=== PATIENT | female | born 1945 | race Caucasian/White ===

== ENCOUNTER 2017-05-07 10:46 | Emergency (ER) | payer MEDICARE, BC ==
[2017-05-07 10:55] VITALS: BP 140/100
--- NOTE | 2017-05-07 11:04 | EDM.PDOC ---
ED HPI GENERAL MEDICAL PROBLEM - General Chief Complaint: General Stated Complaint: CHEST PAIN Time Seen by Provider: 05/07/17 11:05 Source of Information: Reports: Patient History Limitations: Reports: No Limitations - History of Present Illness INITIAL COMMENTS - FREE TEXT/NARRATIVE: 71 yo female with a recent hx of what sounds like exertional angina is scheduled for a cardiac cath tomorrow in [place]. Today she noticed some mild anterior chest discomfort which is now gone and some twinges in her in left arm. Both are gone now that she is here. She had been advised that if her heart sx's returned before her cath that she should be seen. Onset: Today Onset Date: 05/07/17 Duration: Minutes: Location: Reports: Chest, Upper Extremity, Left Quality: Reports: Dull Severity: Mild Improves with: Reports: Other (time, now gone) Worsens with: Reports: Other (unknown, was not exerting herself today when these sx's occurred. 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 (see below) (Took all her usual medications) - Related Data Allergies Allergy/AdvReac Type Severity Reaction Status Date / Time No Known Allergies Allergy Verified 05/07/17 10:51 Home Meds: Home Meds Aspirin 325 mg PO DAILY 05/07/17 [History] Cholecalciferol (Vitamin D3) [Vitamin D3] 2,000 unit PO BEDTIME 05/07/17 [ History] Gabapentin [Neurontin] 400 mg PO TID 05/07/17 [History] Losartan [Cozaar] 50 mg PO DAILY 05/07/17 [History] Metoprolol Succinate [Toprol XL] 50 mg PO DAILY 05/07/17 [History] Simvastatin [Zocor] 40 mg PO DAILY 05/07/17 [History] glipiZIDE [Glipizide Xl] 10 mg PO BID 05/07/17 [History] metFORMIN [Glucophage] 1,000 mg PO BID 05/07/17 [History] Past Medical History Cardiovascular History: Reports: Hypertension 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 Denies: Dyspnea on Exertion, Edema, Lightheadedness, Orthopnea, Palpitations GI/Abdominal: Reports: No Symptoms : Reports: No Symptoms Musculoskeletal: Reports: No Symptoms Skin: Reports: No Symptoms Neurological: Reports: No Symptoms ED EXAM, GENERAL - Physical Exam Exam: See Below Exam Limited By: No Limitations General Appearance: Alert, WD/WN, No Apparent Distress Eye Exam: Bilateral Eye: Normal Inspection, PERRL Ears: Normal External Exam, Normal Canal, Hearing Grossly Normal Ear Exam: Bilateral Ear: Auricle Normal, Canal Normal Nose: Normal Inspection, Normal Mucosa, No Blood Throat/Mouth: Normal Inspection, Normal Lips, Normal Teeth, Normal Oropharynx, Normal Voice, No Airway Compromise Head: Atraumatic, Normocephalic Neck: Normal Inspection Respiratory/Chest: No Respiratory Distress, Lungs Clear, Normal Breath Sounds, No Accessory Muscle Use Cardiovascular: Regular Rate, Rhythm, No Edema GI/Abdominal: Soft, Non-Tender Back Exam: Normal Inspection Extremities: Normal Inspection, Normal Range of Motion, Non-Tender, No Pedal Edema Neurological: Alert, Oriented, CN II-XII Intact, Normal Cognition, Normal Gait, No Motor/Sensory Deficits Psychiatric: Normal Affect, Normal Mood Skin Exam: Warm, Dry, Intact, Normal Color, No Rash Lymphatic: No Adenopathy EKG INTERPRETATION EKG Date: 05/07/17 Time: 10:55 Rhythm: NSR Rate (Beats/Min): 79 [place]: Normal P-Wave: Present QRS: Normal ST-T: Normal QT: Normal Comparison: NA - No Prior EKG Course - Vital Signs Last Recorded V/S: Last Vital Signs Temp 36.8 C 05/07/17 10:46 Pulse 79 05/07/17 10:46 Resp 17 05/07/17 10:46 BP 140/100 H 05/07/17 10:46 Pulse Ox 100 05/07/17 10:46 - Orders/Labs/Meds Orders: Active Orders 24 hr Category Date Time Status EKG 12 Lead [EK] Routine Ther 05/07/17 11:00 Ordered Labs: Laboratory Tests 05/07/17 Range/Units 11:30 Troponin I < 0.01 L (0.02-0.06) NG/ML Departure - Departure Time of Disposition: 12:11 Disposition: Home, Self-Care 01 Condition: Good Clinical Impression: Nonspecific chest pain - Discharge Information Referrals: Violeta Sandoval NP [Primary Care Provider] - Forms: ED Department Discharge - My Orders Last 24 Hours: My Active Orders 05/07/17 11:00 EKG 12 Lead [EK] Routine - Assessment/Plan Last 24 Hours: My Active Orders 05/07/17 11:00 EKG 12 Lead [EK] Routine
== END 2017-05-07 12:25 | disposition home or self-care (01) ==
LOC: FB.ED 10:46
DX: R07.89 Other chest pain (principal); E11.9 Type 2 diabetes mellitus without complications; Z79.84 Long term (current) use of oral hypoglycemic drugs; Z79.82 Long term (current) use of aspirin
CPT/HCPCS: 36415; 84484; 93005; 99283

== ENCOUNTER 2019-05-19 18:24 | Emergency (ER) | payer MEDICARE, BC ==
--- NOTE | 2019-05-19 19:06 | EDM.PDOC ---
ED HPI GENERAL MEDICAL PROBLEM - General Stated Complaint: DISCOMFORT IN CHEST Time Seen by Provider: 05/19/19 18:24 Source of Information: Reports: Patient, Family History Limitations: Reports: No Limitations - History of Present Illness INITIAL COMMENTS - FREE TEXT/NARRATIVE: 73 y.o.w.f S/P cardiac bypass surgery > 2 years ago, H/O HTN and NIDDM, came to the because of mid upper abd. pain going into her mid chest. As soon she takes a tablet of Pepcid, her pain improved. She was seen bey her PMD and melter supervisor for same. No N/V/ no diaphoresis , no SOB or any other acute med issues. 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 below) (pepcid) - Related Data Allergies Allergy/AdvReac Type Severity Reaction Status Date / Time No Known Allergies Allergy Verified 05/19/19 18:58 Home Meds: Home Meds Cholecalciferol (Vitamin D3) [Vitamin D3] 2,000 unit PO BEDTIME 05/07/17 [ History] Gabapentin [Neurontin] 400 mg PO TID 05/07/17 [History] Losartan [Cozaar] 100 mg PO DAILY 05/07/17 [History] Metoprolol Succinate [Toprol XL] 25 mg PO DAILY 05/07/17 [History] glipiZIDE [Glipizide Xl] 10 mg PO BID 05/07/17 [History] metFORMIN [Glucophage] 1,000 mg PO BID 05/07/17 [History] Aspirin [Halfprin] 81 mg PO DAILY 05/19/19 [History] Betamethasone/Propylene Glyc [Betamethasone DP Aug 0.05%] 30 ml TP BID 05/19/19 [History] Biotin 5,000 mcg PO DAILY 05/19/19 [History] Docusate Sodium 250 mg PO DAILY 05/19/19 [History] Fluticasone Propionate [Flonase] 16 gm NS DAILY 05/19/19 [History] atorvaSTATin [Lipitor] 20 mg PO DAILY 05/19/19 [History] hydroCHLOROthiazide [Hydrochlorothiazide] 12.5 mg PO DAILY 05/19/19 [History] Past Medical History Cardiovascular History: Reports: Hypertension, Other (See Below) Other Cardiovascular History: triple bypass 2 years ago. 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 Musculoskeletal History: back surgery Psychiatric History: Reports: Anxiety Endocrine/Metabolic History: Reports: Diabetes, Type II Social & Family History - Family History Family Medical History: Unobtainable ED ROS GENERAL - Review of Systems Review Of Systems: See Below Constitutional: Reports: No Symptoms HEENT: Reports: No Symptoms Respiratory: Reports: No Symptoms Cardiovascular: Reports: No Symptoms Endocrine: Reports: No Symptoms GI/Abdominal: Reports: Abdominal Pain (epigastric) : Reports: No Symptoms Musculoskeletal: Reports: No Symptoms Skin: Reports: No Symptoms Neurological: Reports: No Symptoms Psychiatric: Reports: No Symptoms Hematologic/Lymphatic: Reports: No Symptoms Immunologic: Reports: No Symptoms ED EXAM, GI/ABD - Physical Exam Exam: See Below Exam Limited By: No Limitations General Appearance: Alert, WD/WN, Mild Distress Eyes: Bilateral: Normal Appearance Ears: Normal External Exam, Normal Canal Nose: Normal Inspection, Normal Mucosa, No Blood Throat/Mouth: Normal Lips, Normal Voice, No Airway Compromise Head: Atraumatic, Normocephalic Neck: Normal Inspection, Supple, Non-Tender, Full Range of Motion Respiratory/Chest: No Respiratory Distress, Lungs Clear, Normal Breath Sounds, No Accessory Muscle Use, Chest Non-Tender Cardiovascular: Normal Peripheral Pulses, Regular Rate, Rhythm, No Edema, No Gallop, No Murmur, No Rub GI/Abdominal Exam: Tender (epigastric tenderness) (Female) Exam: Deferred Rectal (Female) Exam: Deferred Back Exam: Normal Inspection, Full Range of Motion Extremities: Normal Inspection, Normal Range of Motion, Non-Tender Neurological: Alert, Oriented, CN II-XII Intact, Normal Cognition, Normal Gait Psychiatric: Normal Affect, Normal Mood Skin Exam: Warm, Dry, Intact, Normal Color, No Rash Lymphatic: No Adenopathy EKG INTERPRETATION EKG Date: 05/19/19 Time: 18:55 Rhythm: NSR Rate (Beats/Min): 84 [place]: Normal P-Wave: Present QRS: Normal ST-T: Normal QT: Normal Comparison: NA - No Prior EKG Course - Vital Signs Text/Narrative:: 73 y.o.w.f S/P cardiac bypass surgery > 2 years ago, H/O HTN and NIDDM, came to the because of mid upper abd. pain going into her mid chest. As soon she takes a tablet of Pepcid, her pain improved. She was seen bey her PMD and melter supervisor for same. No N/V/ no diaphoresis , no SOB or any other acute med issues. BP 193/78 RR 18 Pulse ox 99% on RA Temp 36.8 pulse 78 PE: WNWD W F with epigastric pain and HTN Imaging: Not indicated Labs: CBC nl , BMP: Na 130 Troponin Nl Impression: Hyponatremia, Gastritis, HTN Tx: Maalox Reexam: Gastric pain subsided, BP improved t 162/67 Plan: D/C with instructions Last Recorded V/S: Last Vital Signs Temp 36.6 C 05/19/19 20:10 Pulse 78 05/19/19 20:10 Resp 18 05/19/19 20:10 BP 162/83 H 05/19/19 20:10 Pulse Ox 98 05/19/19 20:10 - Orders/Labs/Meds Labs: Laboratory Tests 05/19/19 05/19/19 05/19/19 Range/Units 18:50 18:50 18:50 WBC 8.0 (4.5-12.0) X10-3/uL RBC 4.07 (3.23-5.20) x10(6)uL Hgb 12.6 (11.5-15.5) g/dL Hct 36.4 (30.0-51.3) % MCV 89.3 (80-96) fL MCH 31.0 (27.7-33.6) pg MCHC 34.7 (32.2-35.4) g/dL RDW 12.3 (11.5-15.5) % Plt Count 401 H (125-369) X10(3)uL MPV 6.6 L (7.4-10.4) fL Neut % (Auto) 63.5 (46-82) % Lymph % (Auto) 25.8 (13-37) % [place] % (Auto) 7.0 (4-12) % Eos % (Auto) 3 (1.0-5.0) % Baso % (Auto) 1 (0-2) % Neut # (Auto) 5.0 (1.6-8.3) # Lymph # (Auto) 2.1 (0.6-5.0) # [place] # (Auto) 0.6 (0.0-1.3) # Eos # (Auto) 0.2 (0.0-0.8) # Baso # (Auto) 0.1 (0.0-0.2) # Sodium 130 L (135-145) mmol/L Potassium 3.8 (3.5-5.3) mmol/L Chloride 95 L (100-110) mmol/L Carbon Dioxide 25 (21-32) mmol/L BUN 12 (7-18) mg/dL Creatinine 0.9 (0.55-1.02) mg/dL Est Cr Clr Drug Dosing TNP Estimated GFR (MDRD) > 60 (>60) BUN/Creatinine Ratio 13.3 (9-20) Glucose 66 L (80-116) mg/dL Calcium 9.6 (8.6-10.2) mg/dL Total Bilirubin 0.3 (0.1-1.3) mg/dL Direct Bilirubin 0.08 L (0.10-0.20) mg/dL AST 20 (5-25) IU/L ALT 27 (12-36) U/L Alkaline Phosphatase 68 (56-112) IU/L Creatine Kinase 138 (60-160) IU/L Troponin I (<0.017-0.056) ng/mL Total Protein 7.4 (6.0-8.0) g/dL Albumin 4.1 (3.2-4.6) g/dL Lipase (73-393) U/L Urine Color (YELLOW) Urine Appearance (CLEAR) Urine pH (5.0-6.5) Ur Specific [place] (1.010-1.025) Urine Protein (NEGATIVE) mg/dL Urine Glucose (UA) (NORMAL) mg/dL Urine Ketones (NEGATIVE) mg/dL Urine Occult Blood (NEGATIVE) Urine Nitrite (NEGATIVE) Urine Bilirubin (NEGATIVE) Urine Urobilinogen (NEGATIVE) mg/dL Ur Leukocyte Esterase (NEGATIVE) Urine RBC (0-5) Urine WBC (0-5) Ur Squamous Epith Cells (NS,R,O) Urine Bacteria (NS) 05/19/19 05/19/19 Range/Units 18:50 19:03 WBC (4.5-12.0) X10-3/uL RBC (3.23-5.20) x10(6)uL Hgb (11.5-15.5) g/dL Hct (30.0-51.3) % MCV (80-96) fL MCH (27.7-33.6) pg MCHC (32.2-35.4) g/dL RDW (11.5-15.5) % Plt Count (125-369) X10(3)uL MPV (7.4-10.4) fL Neut % (Auto) (46-82) % Lymph % (Auto) (13-37) % [place] % (Auto) (4-12) % Eos % (Auto) (1.0-5.0) % Baso % (Auto) (0-2) % Neut # (Auto) (1.6-8.3) # Lymph # (Auto) (0.6-5.0) # [place] # (Auto) (0.0-1.3) # Eos # (Auto) (0.0-0.8) # Baso # (Auto) (0.0-0.2) # Sodium (135-145) mmol/L Potassium (3.5-5.3) mmol/L Chloride (100-110) mmol/L Carbon Dioxide (21-32) mmol/L BUN (7-18) mg/dL Creatinine (0.55-1.02) mg/dL Est Cr Clr Drug Dosing Estimated GFR (MDRD) (>60) BUN/Creatinine Ratio (9-20) Glucose (80-116) mg/dL Calcium (8.6-10.2) mg/dL Total Bilirubin (0.1-1.3) mg/dL Direct Bilirubin (0.10-0.20) mg/dL AST (5-25) IU/L ALT (12-36) U/L Alkaline Phosphatase (56-112) IU/L Creatine Kinase (60-160) IU/L Troponin I < 0.017 L (<0.017-0.056) ng/mL Total Protein (6.0-8.0) g/dL Albumin (3.2-4.6) g/dL Lipase 239 (73-393) U/L Urine Color Yellow (YELLOW) Urine Appearance Clear (CLEAR) Urine pH 6.5 (5.0-6.5) Ur Specific [place] 1.005 L (1.010-1.025) Urine Protein Negative (NEGATIVE) mg/dL Urine Glucose (UA) Normal (NORMAL) mg/dL Urine Ketones Negative (NEGATIVE) mg/dL Urine Occult Blood Negative (NEGATIVE) Urine Nitrite Negative (NEGATIVE) Urine Bilirubin Negative (NEGATIVE) Urine Urobilinogen Normal (NEGATIVE) mg/dL Ur Leukocyte Esterase Negative (NEGATIVE) Urine RBC Not seen (0-5) Urine WBC 0-5 (0-5) Ur Squamous Epith Cells Rare (NS,R,O) Urine Bacteria Rare H (NS) Meds: Medications Discontinued Medications Generic Name Dose Route Start Last Admin Trade Name Freq PRN Reason Stop Dose Admin Al Hydroxide/Mg Hydroxide 30 ml 05/19/19 19:34 05/19/19 19:38 Mag-Al Susp PO 05/19/19 19:35 30 ml ONETIME STA Administration Departure - Departure Time of Disposition: 20:16 Disposition: Home, Self-Care 01 Condition: Good Clinical Impression: Gastritis Qualifiers: Gastritis type: unspecified gastritis Chronicity: unspecified Gastritis bleeding: without bleeding Qualified Code(s): K29.70 - Gastritis, unspecified, without bleeding - Discharge Information Instructions: Gastritis, Adult, [id number] Referrals: Violeta Sandoval NP [Primary Care Provider] - Forms: ED Department Discharge Additional Instructions: Please take Maalox 30 cc 3 hours after your last meal in the evening for 5 days. Please f/u with your PMD, Come back if your symptoms get worse acutely
[2019-05-19 19:22] VITALS: PULSE 78
[2019-05-19] MEDS ORDERED: Aluminum Hydroxide/Magnesium Hydroxide Susp 30 ML Cup PO STA (19:34)
[2019-05-19 20:27] VITALS: BP 162/83
== END 2019-05-19 20:20 | disposition home or self-care (01) ==
LOC: FB.ED 18:24
DX: K29.70 Gastritis, unspecified, without bleeding (principal); I10 Essential (primary) hypertension; E11.9 Type 2 diabetes mellitus without complications; F41.9 Anxiety disorder, unspecified; Z95.1 Presence of aortocoronary bypass graft; Z79.899 Other long term (current) drug therapy; Z79.82 Long term (current) use of aspirin; Z79.84 Long term (current) use of oral hypoglycemic drugs
CPT/HCPCS: 36415; 80048; 80076; 81001; 82550; 83690; 84484; 85025; 99284; A9270

== ENCOUNTER 2023-06-16 13:06 | Emergency (ER) | payer OTHER, MEDICARE, BC ==
[2023-06-16] MEDS ORDERED: Sodium Chloride 0.9% 10 ML Syringe FLUSH PRN (13:22)
[2023-06-16] MEDS ORDERED: amLODIPine 5 MG Tab PO ONE (13:23)
[2023-06-16] MEDS ORDERED: Labetalol 20 MG/4 ML Syringe IVPUSH ONE (13:23)
[2023-06-16 13:47] LABS: BASOPHILS ABSOLUTE AUTO 0.1 x10-3/uL (0.0-0.1); BASOPHILS PERCENT AUTO 0.8 % (0.2-1.5); EOSINOPHILS ABSOLUTE AUTO 0.2 x10-3/uL (0.0-0.8); EOSINOPHILS PERCENT AUTO 3.6 % (0.6-8.1); HEMATOCRIT 36.5 % (34.2-48.2); HEMOGLOBIN 12.6 g/dL (11.4-15.5); LYMPHOCYTES ABSOLUTE AUTO 1.2 x10-3/uL (1.0-4.4); MEAN CORPUSCULAR HEMOGLOBIN 30.5 pg (23.9-33.9); MEAN CORPUSCULAR HGB CONC 34.6 g/dL (31.9-34.8); MEAN CORPUSCULAR VOLUME 88.1 fL (76.7-100.5); MEAN PLATELET VOLUME 6.7 fL (7.1-12.4); MONOCYTES ABSOLUTE AUTO 0.5 x10-3/uL (0.3-1.0); MONOCYTES PERCENT AUTO 6.9 % (4.4-15.7); NEUTROPHILS ABSOLUTE AUTO 4.9 x10-3/uL (1.5-6.3); NEUTROPHILS PERCENT AUTO 71.7 % (30.8-76.2); PLATELET COUNT,PLT 301 x10(3)uL (151-488); RED BLOOD CELL COUNT 4.14 x10(6)uL (3.60-5.20); WHITE BLOOD CELL COUNT,WBC 6.8 x10-3/uL (3.0-10.3)
[2023-06-16 13:54] LABS: BLOOD UREA NITROGEN,BUN 13 mg/dL (7-18); CARBON DIOXIDE,CO2 27 mmol/L (21-32); CHLORIDE,CL 104 mmol/L (100-110); ESTIMATED GFR 58 mL/min (>60); GLUCOSE RANDOM 220 mg/dL (80-116); POTASSIUM,K 4.2 mmol/L (3.5-5.3); SODIUM,NA 140 mmol/L (135-145)
[2023-06-16 14:00] LABS: ALANINE AMINOTRANSFERASE,ALT 27 U/L (12-36); ALBUMIN 3.8 g/dL (3.2-4.6); ALKALINE PHOSPHATASE 93 IU/L (56-112); ASPARTATE AMNIOTRANSFERASE,AST 15 IU/L (5-25); BILIRUBIN TOTAL 0.4 mg/dL (0.1-1.3); PROTEIN TOTAL,TP 7.5 g/dL (6.0-8.0)
[2023-06-16 14:10] LABS: TROPONIN I 14.2 pg/mL (4.0-60.3)
[2023-06-16 14:15] LABS: INR 1.02 (1.00-1.24); PROTHROMBIN TIME 10.5 sec (9.0-11.1); PTT,PARTIAL THROMBOPLSTIN TIME 25.6 SECONDS (24.4-33.2)
[2023-06-16 16:42] VITALS: BP 143/78; PULSE 94
== END 2023-06-16 15:08 | disposition home or self-care (01) ==
LOC: FB.ED 13:06
DX: R55 Syncope and collapse (principal); F43.81 Prolonged grief disorder; E11.9 Type 2 diabetes mellitus without complications; I10 Essential (primary) hypertension; Z79.84 Long term (current) use of oral hypoglycemic drugs; Z79.82 Long term (current) use of aspirin; Z79.899 Other long term (current) drug therapy; V49.40XA Driver injured in collision with unspecified motor vehicles in traffic accident, initial encounter; Y92.410 Unspecified street and highway as the place of occurrence of the external cause
CPT/HCPCS: 71045; 80053; 83880; 84484; 85025; 85610; 85730; 93005; 96374; 99284-25; A9270-GY; J3490

== ENCOUNTER 2023-09-25 22:07 | Observation (INO) | payer MEDICARE, BC ==
[2023-09-25 22:27] LABS: HEMATOCRIT 37.2 % (34.2-48.2); HEMOGLOBIN 12.5 g/dL (11.4-15.5); MEAN CORPUSCULAR HEMOGLOBIN 29.7 pg (23.9-33.9); MEAN CORPUSCULAR HGB CONC 33.7 g/dL (31.9-34.8); MEAN CORPUSCULAR VOLUME 87.9 fL (76.7-100.5); MEAN PLATELET VOLUME 7.3 fL (7.1-12.4); PLATELET COUNT,PLT 314 x10(3)uL (151-488); RED BLOOD CELL COUNT 4.23 x10(6)uL (3.60-5.20); WHITE BLOOD CELL COUNT,WBC 10.3 x10-3/uL (3.0-10.3)
[2023-09-25 22:31] LABS: BLOOD UREA NITROGEN,BUN 17 mg/dL (7-18); CALCIUM 10.6 mg/dL (8.6-10.2); CARBON DIOXIDE,CO2 23 mmol/L (21-32); CHLORIDE,CL 96 mmol/L (100-110); ESTIMATED GFR 58 mL/min (>60); GLUCOSE RANDOM 246 mg/dL (80-116); POTASSIUM,K 4.1 mmol/L (3.5-5.3); SODIUM,NA 135 mmol/L (135-145)
[2023-09-25 22:33] LABS: C-REACTIVE PROTEIN <0.50 mg/dL (<0.50); LIPASE 67 U/L (16-77)
[2023-09-25 22:37] LABS: LYMPHOCYTES PERCENT MAN 8 % (13-37); MONOCYTES PERCENT MAN 3 % (4-12); SEG NEUTROPHILS PERCENT MAN 89 % (46-82)
[2023-09-25] MEDS: Ondansetron 4 MG/2 ML SDV IVPUSH ONE (22:40)
[2023-09-25] MEDS: Sodium Chloride 0.9% 500 ML IV ONE (22:41)
[2023-09-25 22:42] LABS: A/G RATIO 1.1; ALANINE AMINOTRANSFERASE,ALT 27 U/L (12-36); ALBUMIN 4.5 g/dL (3.2-4.6); ALKALINE PHOSPHATASE 101 IU/L (56-112); ASPARTATE AMNIOTRANSFERASE,AST 26 IU/L (5-25); BILIRUBIN TOTAL 0.6 mg/dL (0.1-1.3); PROTEIN TOTAL,TP 8.5 g/dL (6.0-8.0)
[2023-09-25 23:40] LABS: INFLUENZA A NAA NEGATIVE (NEGATIVE); INFLUENZA B NAA NEGATIVE (NEGATIVE); RESPIRATORY SYNCYTIAL VIR NAA NEGATIVE (NEGATIVE)
[2023-09-25 23:42] LABS: CORONAVIRUS COVID-19 NAA NEGATIVE (NEGATIVE)
[2023-09-26] MEDS: Meclizine 25 MG Tab PO ONE
[2023-09-26 01:01] LABS: BILIRUBIN,URINE NEGATIVE (NEGATIVE); GLUCOSE,URINE >1000 mg/dL (NORMAL); KETONES,URINE 50 mg/dL (NEGATIVE); LEUKOCYTE ESTERASE,URINE NEGATIVE (NEGATIVE); NITRITE,URINE NEGATIVE (NEGATIVE); OCCULT BLOOD,URINE MODERATE (NEGATIVE); PH,URINE 6.5 (5.0-6.5); PROTEIN,URINE 100 mg/dL (NEGATIVE); UROBILINOGEN,URINE NORMAL (NEGATIVE)
[2023-09-26 01:10] LABS: APPEARANCE,URINE CLEAR (CLEAR); BACTERIA,URINE OCCASIONAL (NS); COLOR,URINE YELLOW (YELLOW); SQUAMOUS EPITHELIAL CELLS,UR RARE (NS,R,O); WBC,URINE 0-5 (0-5)
[2023-09-26] MEDS ORDERED: Ondansetron 4 MG/2 ML SDV IV PRN (01:48)
[2023-09-26] MEDS ORDERED: Acetaminophen 325 MG Tab PO PRN (01:48)
[2023-09-26] MEDS ORDERED: Meclizine 25 MG Tab PO PRN (01:52)
[2023-09-26] MEDS ORDERED: Glucagon,Human Recombinant 1 MG Vial IM PRN (01:52)
[2023-09-26] MEDS ORDERED: 50% Dextrose in Water 50 ML Syringe IVPUSH PRN (01:52)
[2023-09-26] MEDS: Sodium Chloride 0.9% 500 ML IV ONE (02:20)
[2023-09-26] MEDS: Sodium Chloride 0.9% 1,000 ML IV SCH (02:55)
[2023-09-26] MEDS: Pantoprazole 40 MG Vial IVPUSH SCH (03:20)
[2023-09-26] MEDS ORDERED: Insulin Regular, Human 100 Units/ML 3 ML Vial SUBCUT SCH (07:30)
[2023-09-26] MEDS ORDERED: Non-Formulary Medication 1 Each (Betamethasone/Propylene Glyc [Betamethasone Dp Aug 0.05%] TP PRN (09:58)
[2023-09-26] MEDS ORDERED: Albuterol 6.7 GM Inhaler INH PRN (09:58)
[2023-09-26] MEDS: Gabapentin 400 MG Cap PO SCH (11:21)
[2023-09-26] MEDS: Sodium Chloride 0.9% 10 ML Syringe FLUSH PRN (13:12)
[2023-09-26] MEDS: Gadoteridol 279.3 MG/ML 20 ML SDV IV ONE (14:33)
[2023-09-26] MEDS: glipiZIDE 5 MG Tab.ER PO SCH (17:48)
[2023-09-26] MEDS: atorvaSTATin 20 MG Tab PO SCH (17:49)
[2023-09-26] MEDS: amLODIPine 10 MG Tab PO SCH (17:49)
[2023-09-26] MEDS: Metoprolol Succinate 50 MG Tab.ER PO SCH (17:49)
[2023-09-26] MEDS: Losartan 100 MG Tab PO SCH (21:34)
[2023-09-27] MEDS: Aspirin 81 MG Tab.EC PO SCH (08:33)
[2023-09-27] MEDS: Cholecalciferol (Vitamin D3) 25 MCG Tab PO SCH (08:34)
[2023-09-27] MEDS: predniSONE 20 MG Tab PO SCH (08:34)
[2023-09-27 08:36] VITALS: BP 147/61; PULSE 61
== END 2023-09-27 10:45 | disposition home or self-care (01) ==
LOC: FB.ED 22:07 → FB.MS 09-26 01:44
PROVIDERS: ADMIT Emergency Medicine; ATTEND Family Medicine
DX: H81.391 Other peripheral vertigo, right ear (principal); I25.10 Atherosclerotic heart disease of native coronary artery without angina pectoris; E11.9 Type 2 diabetes mellitus without complications; I10 Essential (primary) hypertension; R51.9 Headache, unspecified; E86.0 Dehydration; E78.00 Pure hypercholesterolemia, unspecified; Z20.822 Contact with and (suspected) exposure to COVID-19; Z79.84 Long term (current) use of oral hypoglycemic drugs; Z79.82 Long term (current) use of aspirin; Z79.899 Other long term (current) drug therapy
CPT/HCPCS: 0241U; 36415; 70450; 70548; 70553; 80053; 81001; 82947; 83690; 84484; 85025; 86140; 93005; 93010; 96374; 96375; 99285; A9270; A9579; C9113; J2405; J3360; J3490; J7030; J7040; J7512; 96361; 96376; 99222; 99238; G0378; J1815-GY